=== PATIENT | male | born 1995 | race Hispanic/Latino ===

== ENCOUNTER 2021-02-27 10:39 | Emergency (ER) | payer SELFPAY ==
[2021-02-27 11:03] VITALS: BP 138/84
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
== END 2021-02-27 12:22 | disposition home or self-care (01) ==
LOC: ED 10:39
DX: S91.311A Laceration without foreign body, right foot, initial encounter (principal); T74.21XA Adult sexual abuse, confirmed, initial encounter; X58.XXXA Exposure to other specified factors, initial encounter; Y93.89 Activity, other specified; Y92.89 Other specified places as the place of occurrence of the external cause; Y99.8 Other external cause status
CPT/HCPCS: 99281